=== PATIENT | female | born 1990 | race Caucasian/White ===

== ENCOUNTER 2024-06-01 21:54 | Inpatient (IN) | payer BC, SELFPAY ==
[2024-06-01] VITALS (23 sets, daily range): BP systolic 123–152; BP diastolic 66–91; PULSE 105–123; TEMP 36.9; O2SAT 97–100; BMI 26.6
--- NOTE | 2024-06-01 22:29 | LDADM ---
This patient, Rosette Sanchez, was admitted to Labor/Delivery/Recovery 105 on 06/01/24 at 21:54. Plans for labor, pain management and were discussed with patient. Patient/family oriented to hospital policies and general routines including ID bracelet, bed and alarms, visiting hours, pain management, procedures, bathroom and other care routines, personal items, smoking policy, room service/diet and guest tray routines, security routines, and visiting hours. Patient/Family are encouraged to report perceived risks to care and to ask questions if they do not understand what they are told or what they should do. See OBIX for further documentation.
[2024-06-01 22:37] LABS: Basophils Percent Auto 0.2 % (0.2-1.2); Eosinophils Absolute Auto 0.1 K/mm3 (0-0.3); Eosinophils Percent Auto 0.4 % (0-4.4); Hematocrit 36.6 % (37.0-47.0); Hemoglobin 12.2 g/dL (12.0-15.0); Immature Granulocyte Absolute 0.07 K/mm3 (0.00-0.031); Immature Granulocyte Percent A 0.6 % (0-0.5); Lymphocytes Absolute Auto 2.11 K/mm3 (0.9-3.2); Lymphocytes Percent Auto 17.3 % (18.3-44.2); Mean Corpuscular HGB Conc 33.3 g/dl (32-36); Mean Corpuscular Hemoglobin 28.9 pg (26-34); Mean Corpuscular Volume 86.7 fl (80-100); Mean Platelet Volume 12.4 fl (7.4-10.4); Monocytes Absolute Auto 0.6 K/mm3 (0.1-0.6); Monocytes Percent Auto 4.8 % (2.6-8.5); Neutrophils Absolute Auto 9.3 K/mm3 (1.3-6.7); Neutrophils Percent Auto 76.7 % (45.5-73.1); Platelet Count Result 145 k/mm3 (150-375); Red Blood Count 4.22 M/mm3 (4.2-5.4); Red Cell Distribution Width 15.8 % (11.5-14.5); White Blood Count 12.2 K/mm3 (4.5-10.0)
[2024-06-01] MEDS: LACTATED RINGERS 1,000 ML 125 ML IV CONT ×2 (22:41→23:29)
[2024-06-01 23:14] LABS: Syphilis IgG/IgM Antibody Negative (Negative)
[2024-06-01 23:27] LABS: HIV 1/2 Ab P24 Ag Result Negative (Negative)
--- NOTE | 2024-06-01 23:39 | WPDANESEPPF ---
Anes - Initial Pre Proc Eval Procedure: labor epidural Date/Time: 06/01/24 23:39 Surgeon: Booker Calle MD Pre Op Diagnosis: labor pain Pre Op Diagnosis: Leaking Patient Data Age: 34 Gender: F Height: 1.73 m Weight: 79.54 kg Last Vital Signs Temp 36.9 C 06/01/24 23:27 Pulse 106 H 06/01/24 23:37 BP 137/76 06/01/24 23:37 Pulse Ox 97 06/01/24 23:37 O2 Del Method Room Air 06/01/24 22:29 Allergies Allergy/AdvReac Type Severity Reaction Status Date / Time No Known Allergies Allergy Verified 05/10/24 09:57 Home Medications ?Medication ?Instructions ?Recorded ?Confirmed ?Type vit no.95-ferrous 1 tablet PO DAILY 05/10/24 05/10/24 History fumarate 28 mg-folic acid 800 mcg tablet () Laboratory Tests 06/01/24 22:22 WBC 12.2 H K/mm3 (4.5-10.0) RBC 4.22 M/mm3 (4.2-5.4) Hgb 12.2 g/dL (12.0-15.0) Hct 36.6 L % (37.0-47.0) MCV 86.7 fl (80-100) MCH 28.9 pg (26-34) MCHC 33.3 g/dl (32-36) RDW 15.8 H % (11.5-14.5) Plt Count 145 L k/mm3 (150-375) MPV 12.4 H fl (7.4-10.4) Immature Gran % (Auto) 0.6 H % (0-0.5) Neut % (Auto) 76.7 H % (45.5-73.1) Lymph % (Auto) 17.3 L % (18.3-44.2) [place] % (Auto) 4.8 % (2.6-8.5) Eos % (Auto) 0.4 % (0-4.4) Baso % (Auto) 0.2 % (0.2-1.2) Lymph # (Auto) 2.11 K/mm3 (0.9-3.2) [place] # (Auto) 0.6 K/mm3 (0.1-0.6) Eos # (Auto) 0.1 K/mm3 (0-0.3) Baso # (Auto) 0.0 K/mm3 (0.0-0.1) Abs Immat Gran (auto) 0.07 H K/mm3 (0.00-0.031) Absolute Neuts (auto) 9.3 H K/mm3 (1.3-6.7) Absolute Nucleated RBC 0.000 K/mm3 (0.0-0.012) Nucleated RBC % 0.0 % (0.0-0.2) Syphilis IgG/IgM Ab Negative (Negative) HIV 1&2 Ab/P24 Ag 4thGn Negative (Negative) Blood Type A Positive Antibody Screen Negative Patient hx anesthesia problems: none Family hx anesthesia problems: none Results Review: All pre-operative results and documents have been reviewed as part of the pre-operative evaluation. [facility] Family History Family History Other Unknown family medical history Social History Social History Smoking status: Never smoker Substance use: never Do You Feel Safe in your Home?: Yes Lack of Transportation: No Lack of Food: Never True Current Housing: I Have Housing Concerned About Future Housing: No Difficulty Paying Gas/Electric Bills: No Difficulty Paying for Meds: No Currently Unemployed: No Education: Bachelor's Degree Difficulty w/ Childcare or Family Care: No Spiritual care concerns: No Anes - Eval Final PreProcedure Day of Procedure 06/01/24 23:39 Patient weight: normal Heart: regular rate and rhythm Lungs: clear to auscultation Airway: Mallampati scale class 1 Neurological: alert and oriented ASA classification: II Anesthetic plan: proceed Anesthesia type and monitoring: regional epidural and standard monitoring Results Review: All pre-operative results and documents have been reviewed as part of the pre-operative evaluation. Informed Consent: The patient's anesthetic plan and its attendant risks and benefits were discussed with the patient/family/POA. Questions were solicited and answers provided to the satisfaction of the patient/family/POA.
[2024-06-02] VITALS (118 sets, daily range): BP systolic 110–145; BP diastolic 55–87; PULSE 88–158; RESP 16–18; TEMP 36.4–37.4; O2SAT 91–100
[2024-06-02] MEDS: LACTATED RINGERS 1,000 ML 125 ML IV CONT (02:04)
[2024-06-02] MEDS: diphenhydrAMINE HCl INJ 50 MG/ML VIAL 25 MG IV PUSH (02:21)
--- NOTE | 2024-06-02 06:38 | PM.IMHP ---
H&P: HPI History of Present Illness Date/Time: 06/02/24 06:38 Chief Complaint: Labor at term Narrative: This is a 34-year-old 1 para 0 whose last menstrual period was 08/29/2023, EDC is 06/01 24, confirmed by 10 week ultrasound who presents at term in active labor. 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 She passed her diabetic screen is negative for group B strep Review of Systems Review of Systems: All systems reviewed & are unremarkable except as noted in HPI and below PMFSH Family History Family History Other Unknown family medical history Social History Social History Smoking status: Never smoker Substance use: never Do You Feel Safe in your Home?: Yes Lack of Transportation: No Lack of Food: Never True Current Housing: I Have Housing Concerned About Future Housing: No Difficulty Paying Gas/Electric Bills: No Difficulty Paying for Meds: No Currently Unemployed: No Education: Bachelor's Degree Difficulty w/ Childcare or Family Care: No Spiritual care concerns: No Meds Home Medications and Allergies Home Medications ?Medication ?Instructions ?Recorded ?Confirmed ?Type vit no.95-ferrous 1 tablet PO DAILY 05/10/24 05/10/24 History fumarate 28 mg-folic acid 800 mcg tablet () valacyclovir 1 gram tablet mg 06/01/24 History Allergies Allergy/AdvReac Type Severity Reaction Status Date / Time No Known Allergies Allergy Verified 06/01/24 23:58 Vital Signs Vital Signs - 24 hr 06/01/24 22:29 06/01/24 23:04 06/01/24 23:12 Temperature Pulse Rate 119 H 114 H Respiratory Rate Blood Pressure 140/88 128/91 H Pulse Oximetry 100 Oxygen Delivery Room Air 06/01/24 23:13 06/01/24 23:15 06/01/24 23:17 Temperature Pulse Rate 123 H 114 H Respiratory Rate Blood Pressure 143/80 H 144/82 H Pulse Oximetry 100 Oxygen Delivery 06/01/24 23:18 06/01/24 23:20 06/01/24 23:22 Temperature Pulse Rate 118 H 113 H 110 H Respiratory Rate Blood Pressure 152/66 H 149/74 H 134/83 Pulse Oximetry 98 Oxygen Delivery 06/01/24 23:25 06/01/24 23:27 06/01/24 23:28 Temperature 98.4 F Pulse Rate 105 H 110 H Respiratory Rate Blood Pressure 147/79 H 137/82 Pulse Oximetry 98 Oxygen Delivery 06/01/24 23:30 06/01/24 23:32 06/01/24 23:35 Temperature Pulse Rate 113 H 114 H 112 H Respiratory Rate Blood Pressure 137/71 131/72 130/71 Pulse Oximetry 97 Oxygen Delivery 06/01/24 23:37 06/01/24 23:40 06/01/24 23:42 Temperature Pulse Rate 106 H 108 H 112 H Respiratory Rate Blood Pressure 137/76 123/77 132/72 Pulse Oximetry 97 98 Oxygen Delivery 06/01/24 23:45 06/01/24 23:47 06/01/24 23:50 Temperature Pulse Rate 109 H 114 H 107 H Respiratory Rate Blood Pressure 133/76 125/76 130/74 Pulse Oximetry 98 Oxygen Delivery 06/01/24 23:52 06/01/24 23:55 06/01/24 23:57 Temperature Pulse Rate 107 H 110 H 109 H Respiratory Rate Blood Pressure 135/71 133/73 129/76 Pulse Oximetry 97 97 Oxygen Delivery 06/02/24 00:00 06/02/24 00:02 06/02/24 00:05 Temperature Pulse Rate 112 H 115 H 118 H Respiratory Rate Blood Pressure 129/78 127/77 133/72 Pulse Oximetry 97 Oxygen Delivery 06/02/24 00:07 06/02/24 00:12 06/02/24 00:15 Temperature Pulse Rate 112 H 111 H Respiratory Rate Blood Pressure 126/75 123/66 Pulse Oximetry 99 97 Oxygen Delivery 06/02/24 00:17 06/02/24 00:22 06/02/24 00:27 Temperature Pulse Rate Respiratory Rate Blood Pressure Pulse Oximetry 98 93 94 Oxygen Delivery 06/02/24 00:30 06/02/24 00:32 06/02/24 00:37 Temperature Pulse Rate 113 H Respiratory Rate Blood Pressure 115/66 Pulse Oximetry 94 93 Oxygen Delivery 06/02/24 00:42 06/02/24 00:45 06/02/24 00:47 Temperature Pulse Rate 112 H Respiratory Rate Blood Pressure 119/62 Pulse Oximetry 94 93 Oxygen Delivery 06/02/24 00:52 03/07/25 00:57 06/02/24 01:00 Temperature Pulse Rate 112 H Respiratory Rate Blood Pressure 113/75 Pulse Oximetry 94 98 Oxygen Delivery 06/02/24 01:02 06/02/24 01:07 06/02/24 01:12 Temperature 98.7 F Pulse Rate Respiratory Rate Blood Pressure Pulse Oximetry 95 95 98 Oxygen Delivery 06/02/24 01:15 06/02/24 01:17 06/02/24 01:22 Temperature Pulse Rate 116 H Respiratory Rate Blood Pressure 121/71 Pulse Oximetry 97 97 Oxygen Delivery 06/02/24 01:27 06/02/24 01:30 06/02/24 01:32 Temperature Pulse Rate 106 H Respiratory Rate Blood Pressure 137/69 Pulse Oximetry 95 95 Oxygen Delivery 06/02/24 01:37 06/02/24 01:42 06/02/24 01:45 Temperature Pulse Rate 117 H Respiratory Rate Blood Pressure 115/71 Pulse Oximetry 96 95 Oxygen Delivery 06/02/24 01:47 06/02/24 01:52 06/02/24 01:57 Temperature Pulse Rate Respiratory Rate Blood Pressure Pulse Oximetry 95 96 96 Oxygen Delivery 06/02/24 02:00 06/02/24 02:02 06/02/24 02:07 Temperature Pulse Rate 117 H Respiratory Rate Blood Pressure 123/77 Pulse Oximetry 95 96 Oxygen Delivery 06/02/24 02:12 06/02/24 02:17 06/02/24 02:22 Temperature Pulse Rate Respiratory Rate Blood Pressure Pulse Oximetry 96 98 94 Oxygen Delivery 06/02/24 02:27 06/02/24 02:30 06/02/24 02:32 Temperature Pulse Rate 112 H Respiratory Rate Blood Pressure 113/63 Pulse Oximetry 95 95 Oxygen Delivery 06/02/24 02:37 06/02/24 02:42 06/02/24 02:45 Temperature Pulse Rate 113 H Respiratory Rate Blood Pressure 112/55 L Pulse Oximetry 95 94 Oxygen Delivery 06/02/24 02:47 06/02/24 02:52 06/02/24 02:57 Temperature Pulse Rate Respiratory Rate Blood Pressure Pulse Oximetry 96 96 97 Oxygen Delivery 06/02/24 03:00 06/02/24 03:02 06/02/24 03:05 Temperature 99.4 F Pulse Rate 118 H Respiratory Rate 18 Blood Pressure 110/55 L Pulse Oximetry 96 Oxygen Delivery 06/02/24 03:07 06/02/24 03:12 06/02/24 03:15 Temperature Pulse Rate 154 H Respiratory Rate Blood Pressure 128/73 Pulse Oximetry 98 94 Oxygen Delivery 06/02/24 03:17 06/02/24 03:22 06/02/24 03:27 Temperature Pulse Rate Respiratory Rate Blood Pressure Pulse Oximetry 95 95 97 Oxygen Delivery 06/02/24 03:28 06/02/24 03:30 06/02/24 03:32 Temperature 99.4 F Pulse Rate 127 H Respiratory Rate Blood Pressure 127/76 Pulse Oximetry 95 Oxygen Delivery 06/02/24 03:37 06/02/24 03:42 06/02/24 03:45 Temperature Pulse Rate 120 H Respiratory Rate Blood Pressure 130/80 Pulse Oximetry 95 96 Oxygen Delivery 06/02/24 03:47 06/02/24 03:52 06/02/24 03:57 Temperature Pulse Rate Respiratory Rate Blood Pressure Pulse Oximetry 96 95 98 Oxygen Delivery 06/02/24 04:00 06/02/24 04:02 06/02/24 04:07 Temperature Pulse Rate 111 H Respiratory Rate Blood Pressure 129/65 Pulse Oximetry 97 97 Oxygen Delivery 06/02/24 04:12 06/02/24 04:17 06/02/24 04:22 Temperature Pulse Rate Respiratory Rate Blood Pressure Pulse Oximetry 97 97 98 Oxygen Delivery 06/02/24 04:27 06/02/24 04:32 06/02/24 04:37 Temperature 98.7 F Pulse Rate Respiratory Rate Blood Pressure Pulse Oximetry 95 96 95 Oxygen Delivery 06/02/24 04:42 06/02/24 04:45 06/02/24 04:47 Temperature Pulse Rate 113 H Respiratory Rate Blood Pressure 123/67 Pulse Oximetry 96 96 Oxygen Delivery 06/02/24 04:52 06/02/24 04:57 06/02/24 05:00 Temperature Pulse Rate 119 H Respiratory Rate Blood Pressure 117/66 Pulse Oximetry 98 98 Oxygen Delivery 06/02/24 05:02 06/02/24 05:07 06/02/24 05:12 Temperature Pulse Rate Respiratory Rate Blood Pressure Pulse Oximetry 96 96 97 Oxygen Delivery 06/02/24 05:17 06/02/24 05:22 06/02/24 05:27 Temperature Pulse Rate Respiratory Rate Blood Pressure Pulse Oximetry 93 96 96 Oxygen Delivery 06/02/24 05:30 06/02/24 05:32 06/02/24 05:37 Temperature Pulse Rate 119 H Respiratory Rate Blood Pressure 129/78 Pulse Oximetry 96 97 Oxygen Delivery 06/02/24 05:42 06/02/24 05:45 06/02/24 05:47 Temperature Pulse Rate 119 H Respiratory Rate Blood Pressure 125/75 Pulse Oximetry 98 98 Oxygen Delivery 06/02/24 05:52 06/02/24 05:57 06/02/24 06:02 Temperature Pulse Rate Respiratory Rate Blood Pressure Pulse Oximetry 98 97 98 Oxygen Delivery 06/02/24 06:07 06/02/24 06:08 06/02/24 06:10 Temperature Pulse Rate Respiratory Rate Blood Pressure Pulse Oximetry 99 100 99 Oxygen Delivery 06/02/24 06:12 06/02/24 06:15 06/02/24 06:20 Temperature 98.9 F Pulse Rate Respiratory Rate Blood Pressure Pulse Oximetry 99 99 Oxygen Delivery 06/02/24 06:22 06/02/24 06:22 06/02/24 06:25 Temperature Pulse Rate Respiratory Rate Blood Pressure Pulse Oximetry 99 98 91 Oxygen Delivery 06/02/24 06:27 Temperature Pulse Rate Respiratory Rate Blood Pressure Pulse Oximetry 100 Oxygen Delivery Exam Const: General: cooperative, healthy appearing and comfortable Nutritional Appearance: average body habitus Orientation/consciousness: oriented to person, oriented to place and oriented to time HENMT: Head: normal to inspection Resp: Effort & Inspection: normal respiratory effort Cardio: Rate: regular rate Rhythm: regular rhythm Heart sounds: S1 normal heart sound present and S2 normal heart sound present GI: Inspection: normal to inspection (Gravid soft uterus) : External Female Exam: normal external appearance Speculum Exam - Vagina: normal appearance of the vagina Speculum Exam - Cervix: normal appearance of the cervix (Service complete patient pushing) H&P: Results Labs Labs: Short CBC 06/01/24 Range/Units 22:22 WBC 12.2 H (4.5-10.0) K/mm3 Hgb 12.2 (12.0-15.0) g/dL Hct 36.6 L (37.0-47.0) % Plt Count 145 L (150-375) k/mm3 Assessment and Plan Assessment and plan (1) Term : Code(s): Z34.90 - Encounter for supervision of normal , unspecified, unspecified trimester Status: Acute Plan Spontaneous vaginal delivery expected
[2024-06-02] MEDS: OXYTOCIN 30 UNITS/NS 500 ML 30 UNITS/500 ML BAG 999 UNITS IV CONT (07:24)
--- NOTE | 2024-06-02 07:26 | PM.OBPRVD ---
OB - Vaginal Delivery Note Procedure Delivery date: 06/02/24 Induction method: None Delivery monitor: External FHT and Internal Uterine Route of delivery: Episiotomy description: None Laceration Description: None Specimen: No Quantitative Blood Loss (ml): 62 Anesthesia type: Epidural Disposition: Floor Complications: No immediate complications Narrative: Patient was admitted in active labor at 40 weeks gestation. She had epidural anesthesia placed and internal monitoring placed. She progressed an unremarkable 1st stage of labor to completely dilated she pushed delivered head spontaneously in the STAN position. Anterior posterior shoulder delivered spontaneously after relieving the nuchal cord around the occiput. Patient passed off the table given Apgars of 7 [id number] and 9 [id number]. Cord blood was drawn. Placenta intact spontaneously. 20units Pitocin placed IV to help firm the uterus. No tears or lacerations were noted. QBL was 62cc. Mom and baby are doing fine at the time of dictation Baby Date of : 06/02/24 Time of : 07:18 Gestational Age by Date: 40 Infant gender: Male Weight (pounds): 7 Weight (ounces): 10 presentation: vertex position: Right Occiput Anterior Placenta delivery description: Spontaneous Cord Vessel Description: 3 Vessels, Nuchal Cord, Loose and Reduced score one minute: 7 score five minutes: 9
--- NOTE | 2024-06-02 07:29 | PM.DS ---
DS: Admitting Diagnosis Discharge Date 06/04/2024 Admitting Diagnosis Term DS: Discharge Diagnosis Discharge Diagnosis (1) Term : Code(s): Z34.90 - Encounter for supervision of normal , unspecified, unspecified trimester Status: Acute DS: Summary Hospital Course Reason for hospitalization: Patient was admitted in active labor on the late p.m. of 06/01/2024. She underwent spontaneous vaginal delivery on 06/02/2024 at 7:18 a.m. Hospital Course: Patient's hospital course unremarkable. She remained afebrile. She was up, voiding without difficulty, eating regular diet, ambulating, and generally without complaints. Time Spent with Patient Time attestation: Total time spent providing and/or coordinating discharge services: Exam Const: General: cooperative, healthy appearing and comfortable Nutritional Appearance: average body habitus Orientation/consciousness: oriented to person, oriented to place and oriented to time HENMT: Head: normal to inspection Resp: Effort & Inspection: normal respiratory effort Cardio: Rate: regular rate Rhythm: regular rhythm Heart sounds: S1 normal heart sound present and S2 normal heart sound present GI: Inspection: normal to inspection (Fundus firm below the umbilicus) DS: Data Data Completed and Pending Labs on day of discharge: Labs from last 24 hours 06/01/24 22:22 WBC 12.2 H RBC 4.22 Hgb 12.2 Hct 36.6 L MCV 86.7 MCH 28.9 MCHC 33.3 RDW 15.8 H Plt Count 145 L MPV 12.4 H Immature Gran % (Auto) 0.6 H Neut % (Auto) 76.7 H Lymph % (Auto) 17.3 L [place] % (Auto) 4.8 Eos % (Auto) 0.4 Baso % (Auto) 0.2 Lymph # (Auto) 2.11 [place] # (Auto) 0.6 Eos # (Auto) 0.1 Baso # (Auto) 0.0 Abs Immat Gran (auto) 0.07 H Absolute Neuts (auto) 9.3 H Absolute Nucleated RBC 0.000 Nucleated RBC % 0.0 Syphilis IgG/IgM Ab Negative HIV 1&2 Ab/P24 Ag 4thGn Negative Blood Type A Positive Antibody Screen Negative Discharge Plan Discharge Attending physician on discharge: Booker Francis Discharging Clinician: Booker Francis Activity: may shower, no straining and pelvic rest Diet: heart healthy Wound Care Instructions: follow printed instructions Patient Language: Greek Follow-up/Referrals: Booker Francis MD [Physician] - Discharge Medications: Continued PNV cmb#95-ferrous fumarate-FA [] 28 mg iron- 800 mcg tablet 1 tablet PO DAILY valacyclovir 1 gram tablet Date of admission: 06/01/24 21:54 Primary Care Provider: PHYSICIAN,SEPARATOR OPERATOR [employer] Admitting Provider: Booker Francis Attending physician on admission: Booker Francis Condition: Stable
[2024-06-02] MEDS: OXYTOCIN 30 UNITS/NS 500 ML 30 UNITS/500 ML BAG 125 UNITS IV CONT (07:58)
[2024-06-02] MEDS: IBUPROFEN 600 MG TABLET (12:19)
[2024-06-02] MEDS: ACETAMINOPHEN 325 MG TABLET 650 MG PO (15:20)
--- NOTE | 2024-06-02 17:01 | PC.NURSE ---
0835 RN called to labor room to help mother latch baby. Mother had baby is cross cradle position and would open mouth, cry and not latch. Baby would not suck on gloved finger either at this time. Mother is able to hand express large drops of colostrum into baby's mouth, mother did this around 6-7 times. Mother put baby skin to skin and will continue to watch for feeding cues. Reported to Nursery RN. 1130 This RN assisted mother with putting baby in cross cradle position, baby was not able to latch, he would cry at the breast and then fall asleep, RN helped mother hand express large drops of colostrum into baby's mouth 9 times. Per mother she does have her own breast pump that her will go home and get if she needs to use it sooner than later, for now she will hand express. Admission packet given for and reviewed, discussed feeding cues, how often to feed baby and supply/demand. Reported to Primary RN. 1220 This RN in room and mother was able to hand express drops of colostrum into baby's mouth 3 times, she had baby in football position but baby was too sleepy to latch at this time. Mother is keeping baby skin to skin. Reported to Primary RN. 1435 RN at bedside. RN changed large meconium diaper, baby awake. Mother attempted to latch infant, he is still not wanting to open up and latch. RN attempted to see if baby would suck on her gloved finger and he still would not. Mother is able to hand express many drops of colostrum and give to baby. Mother keeping baby skin to skin. Reported to Primary RN. RN will let machine featheredger and reducer know. 1600 RN at bedside, mother works very well with infant and she has him in football position on her right breast, baby will open wide now and he will latch but will not suck, he had previously sucked on a gloved finger and was rooting. Mother is again hand expressing and giving large drops of colostrum. Reported to Primary RN. RN will check back in with machine featheredger and reducer before 6pm this evening.
[2024-06-02] MEDS: IBUPROFEN 600 MG TABLET PO (18:25)
--- NOTE | 2024-06-02 18:30 | PC.NURSE ---
Parents advised that baby's blood sugar check was 56 and within normal limits. Baby is due to try and feed soon, mother has brought her Spectra pump and would like that set up, she knows that if baby continues to not effectively feed at the breast she should pump with each feeding and may need to supplement as needed. Instructions given on cleaning, care, usage, that there should be no pain, pumping schedule for milk production, collection, and storage of human milk. Patient was assessed for correct placement, flange size (both nipples measured 19mm and she is going to try the 24 flange, if too big will use hospital pump), to pump for comfort and nipple stretching/stimulation for adequate milk production every 3 hours (8 times in 24 hours) 1-2 times at night. Parents are encouraged to record the pumping schedule on the feeding sheet.?Mother voiced understanding of the education shared along with mom/baby guide and the pump measurement, flange fit handout for additional resource information. Reported to the Primary RN.
[2024-06-03] MEDS: IBUPROFEN 600 MG TABLET PO ×3 (04:30→23:00)
[2024-06-03 05:18] LABS: Hematocrit 29.6 % (37.0-47.0); Hemoglobin 9.7 g/dL (12.0-15.0)
--- NOTE | 2024-06-03 07:02 | P.PNOB_ITS ---
OB - PN: Subj Subjective Date/time seen: 06/03/24 07:02 Patient comments: no complaints, pain well controlled and tolerating diet [place] baby status: doing well and nursing well OB - PN: Obj Data Labs 06/03/24 05:02 Labs: Laboratory Results - last 24 hr 06/03/24 05:02 Hgb 9.7 L Hct 29.6 L OB - PN A/P Assessment and Plan (1) Term : Code(s): Z34.90 - Encounter for supervision of normal , unspecified, unspecified trimester Status: Acute Plan Comments: routine care Time Spent With Patient Time: Total time spent is greater than 50% in coordination of care (as documented) at patient's floor/unit and/or counseling patient: Review of Systems 2 Review of Systems: All systems reviewed & are unremarkable except as noted in HPI and below Exam 2 Const: General: cooperative, healthy appearing, comfortable and well groomed Nutritional Appearance: average body habitus Orientation/consciousness: o riented to person and oriented to place Resp: Effort & Inspection: normal respiratory effort GI: Inspection: normal to inspection
[2024-06-03 08:00] VITALS: BP 126/76; PULSE 93; RESP 16; TEMP 36.3; O2SAT 98
--- NOTE | 2024-06-03 09:05 | PC.NURSE ---
Introductions were made, then consulted with patient to assess needs related to . Discussed with mother her?plans to feed?her and the?experience so far. Baby has only latched to the breast once with the nipple shield. He is now 24 hours old. Yesterday he received drops of colostrum and had blood sugars WNL. Mom is pumping with her Spectra pump. RN had baby for the circumcision and testing in the nursery so parents elected to give a bottle at this feeding time. Encouraged mom to call out today for latching assistance and any questions/concerns regarding pumping or feeding. Resources provided for inpatient and outpatient services with the feeding sheet, mom/baby guide and name written on the communication board. Mother voiced understanding of information and will call if there is a request for assistance. Reported to the Primary RN.
[2024-06-03] MEDS: ACETAMINOPHEN 325 MG TABLET 650 MG PO ×2 (09:53→19:10)
[2024-06-03] MEDS: MULTIVIT/MIN/PREN/FOL AC/IRON TABLET 1 TAB PO (09:54)
[2024-06-03] MEDS: DOCUSATE SODIUM 100 MG CAPSULE PO ×2 (09:54→16:25)
[2024-06-03] MEDS: POLYSACCHARIDE IRON COMPLEX 150 MG CAPSULE PO ×2 (09:55→16:25)
--- NOTE | 2024-06-03 17:00 | PC.NURSE ---
Introductions were made, then consulted with patient to assess needs related to . Mother led the conversation with her?plans to feed?her and the?experience so far. Encouraged understanding of the benefits of skin to skin (demonstrating unwrapping infant and placing upright on her chest), changing positions to encourage wakefulness, how to watch for early feeding cues, responsive feeding, feeding on demand (aiming for 8-12 times in 24 hours, about every 2-3 hours), milk production, building/maintaining a milk supply, duration of feeding, signs of adequate intake/output and how to record on the feeding sheet. Mother unsure if she wants to put baby to breast or to pump and bottle feed. Encouraged that if she is intending to put baby to breast she should practice at every feeding. Reviewed positioning and latch in the mom/baby guide. Reviewed pump use and modes, frequency, and collection, use and storage of breastmilk. Mother voiced understanding of skin to skin, stimulating with massage touch, responsive feedings, hand expressed colostrum, talking to to encourage if it has been 3 hours since the start of the last , to call if does not latch, or if there is discomfort with . We discussed formula feeding and how to incorporate that into her journey. Significant other is very involved and supportive. Resources used for education were facilitated with the [mom and baby guide], Inpatient/outpatient resources provided with Services phone number, feeding sheet, name written on the communication board, and the mom/baby guide. Parents voiced understanding of information, demonstrated learning and will call if there is a request for assistance. Reported to the Primary RN.
[2024-06-03 19:10] VITALS: BP 129/78; PULSE 80; RESP 18; TEMP 36.6
--- NOTE | 2024-06-04 03:05 | PC.NURSE ---
Daylight Savings Time For Daylight Savings Time Beginning in the Spring - Clocks are moved ahead. For [facility], the time of change occurs at 0200 hrs. Time is taken from the linux server administrator. This entry on the patient's chart recognizes the change in time reflected during documentation. Example: 2 entries for vital signs may be charted for 0200 hrs.
[2024-06-04] MEDS: ACETAMINOPHEN 325 MG TABLET 650 MG PO (05:00)
--- NOTE | 2024-06-04 07:05 | P.PNOB_ITS ---
OB - PN: Subj Subjective Date/time seen: 06/04/24 07:05 Patient comments: no complaints, pain well controlled and tolerating diet [place] baby status: doing well and nursing well OB - PN: Obj Data Labs 06/03/24 05:02 OB - PN A/P Assessment and Plan (1) Term : Code(s): Z34.90 - Encounter for supervision of normal , unspecified, unspecified trimester Status: Acute Plan home Time Spent With Patient Time: Total time spent is greater than 50% in coordination of care (as documented) at patient's floor/unit and/or counseling patient: Review of Systems 2 Review of Systems: All systems reviewed & are unremarkable except as noted in HPI and below Exam 2 Const: General: cooperative, healthy appearing, comfortable and well groomed Nutritional Appearance: average body habitus Orientation/consciousness: o riented to person, oriented to place and oriented to time HENMT: Head: normal to inspection Resp: Effort & Inspection: normal respiratory effort GI: Inspection: normal to inspection
[2024-06-04] MEDS: MULTIVIT/MIN/PREN/FOL AC/IRON TABLET 1 TAB PO (07:45)
[2024-06-04] MEDS: DOCUSATE SODIUM 100 MG CAPSULE PO (07:45)
[2024-06-04] MEDS: POLYSACCHARIDE IRON COMPLEX 150 MG CAPSULE PO (07:45)
[2024-06-04 07:50] VITALS: BP 112/73; PULSE 82; RESP 16; TEMP 36.4; O2SAT 97
[2024-06-05 08:30] VITALS: BP 113/68; PULSE 87; RESP 18; TEMP 36.6; O2SAT 98
== END 2024-06-04 09:50 | disposition home or self-care (01) | DRG 807 ==
LOC: ANHLDR 06-02 07:31 → ANHOB2 06-02 11:17
PROVIDERS: Admitting Provider Obstetrics & Gynecology; Visit Provider Obstetrics & Gynecology
DX: O69.81X0 Labor and delivery complicated by cord around neck, without compression, not applicable or unspecified (principal); Z37.0 Single live birth; Z3A.40 40 weeks gestation of pregnancy
CPT/HCPCS: 36415; 85014; 85018; 85025; 86593; 86703; 86850; 86900; 86901; A9270; G0432; J1200; J2590; J2795; J7030; J7120

== ENCOUNTER 2024-12-16 14:46 | Emergency (ER) | payer OTHER, SELFPAY ==
--- OUTSIDE RECORDS SUMMARY | 2024-12-16 14:50 | XMS_ITS ---
Author Organization Unknown ENCOUNTERS Encounter Performer Location Date Diagnosis Diagnosis Status Inpatient [address] [id number] [place] *Note: Encounters from your own facility or health system may be excluded. Allergies, Adverse Reactions, Alerts Allergen Type Severity Identification Date Medications Name Date Quantity Days Supplied GPI Number
--- NOTE | 2024-12-16 14:55 | ED_ITS ---
HPI - URI/Sore Throat General Chief Complaint: Upper Respiratory Infection Stated Complaint: Flu Like Time Seen by Provider: 12/16/24 14:55 Source: patient Mode of arrival: ambulatory Limitations: no limitations History of Present Illness HPI Narrative: Radha is a 34-year-old female patient presenting to the clinic today with complaints of flu-like symptoms. She reports she reports body aches, left breast pain, fatigue, and feeling feverish since yesterday. States she is currently . Actively pumps and has not been able pump since 8:00 a.m. this morning. Reporting pain to the left lateral upper breast and axilla area. Tender to this area to palpation. Temperature is 38.2? C in the clinic today and heart rates 124. She denies any URI symptoms. Has not taken any medications for her symptoms. Related Data Home Medications ?Medication ?Instructions ?Recorded ?Confirmed ?Last Taken ?Type vit no.95-ferrous 1 tablet PO DAILY 05/10/24 05/10/24 05/10/24 History fumarate 28 mg-folic acid 800 mcg tablet () valacyclovir 1 gram tablet mg 06/01/24 06/01/24 Histo ry Allergies Allergy/AdvReac Type Severity Reaction Status Date / Time No Known Allergies Allergy Verified 12/16/24 14:48 Review of Systems Review of Systems: Pertinent positives per HPI. Patient denies any rash, headache, visual changes, dizziness, cough, shortness of breath, chest pain, palpitations, nausea, vomiting, diarrhea, constipation, abdominal pain, or any urinary issues. [facility] Family History Family History Other Unknown family medical history Social History Social History Smoking status: Never smoker Substance use: never Do You Feel Safe in your Home?: Yes Lack of Transportation: No Lack of Food: Never True Current Housing: I Have Housing Concerned About Future Housing: No Difficulty Paying Gas/Electric Bills: No Difficulty Paying for Meds: No Currently Unemployed: No Education: Bachelor's Degree Difficulty w/ Childcare or Family Care: No Spiritual care concerns: No Comments At the time of my signature, I reviewed and agree with the nursing past medical, surgical, social, and family history. There is no relevant family history pertinent to the patient complaint. Exam Narrative: General: Well-developed, well nourished, in no apparent distress Head: Normocephalic, atraumatic Eyes: Pupils equally round and reactive to light bilaterally, EOM intact, sclera and conjunctive clear, no discharge, lids normal Ears: TMs intact and clear, ear canals clear, no drainage, grossly hearing normal. Nose: Nares patent, no discharge, no inflammation, no sinus tenderness. Mouth: Oral pharynx without lesions or masses, good dentition, MMM. Neck: Supple, trachea midline, no enlargement of anterior or posterior cervical nodes, no thyroid masses or goiter palpable. Breast: Symmetric, no dimpling, right breast-no masses or lesions bilaterally, non-tender, no nipple discharge, left breast tenderness to the lateral left upper quadrant into the axilla, no palpable mass or redness, no purulent nipple discharge Cardio: Regular rate and rhythm, s1 and s2 normal, no murmur appreciated. Resp: Clear to auscultation bilaterally, no rhonchi, rales, wheezing or rubs Course Course Emergency Course: Portions of this record may have been created with voice recognition software. Level of Care: Express Care Visit Vital Signs Vital signs: Vital signs reviewed MDM - URI/Sore Throat MDM Narrative Medical decision making narrative: At the time of visit patient is resting comfortably on the exam table. Patient appears to be nontoxic. Complaints of flu-like symptoms. She reports she reports body aches, left breast pain, fatigue, and feeling feverish since yesterday. States she is currently . Actively pumps and has not been able pump since 8:00 a.m. this morning. Reporting pain to the left lateral upper breast and axilla area. Tender to this area to palpation. Temperature is 38.2? C in the clinic today and heart rates 124. She denies any URI symptoms. Has not taken any medications for her symptoms patient has normal exam other than left breast tenderness to the lateral left upper quadrant into the axilla, no palpable mass or redness, no purulent nipple discharge. COVID and influenza testing was ordered Labs: COVID and influenza testing were negative in the clinic today. Plan: I suspect patient may have early mastitis. Having breast tenderness as well as a temperature and she is tachycardic in the clinic today. Will send in prescription for some cephalexin. Supportive measures were discussed with the patient and they voiced understanding discharge instructions and agrees to treatment plan. Return precautions reviewed Differential Diagnosis Differential diagnosis: Likely upper respiratory infection, otitis media, sinusitis, viral infection, bronchitis, influenza, pharyngitis and other (COVID) Discharge Plan Discharge Clinical Impression: Acute mastitis of left breast Patient Disposition: Home Condition: Stable Instructions: Antibiotic Form, Mastitis (ED) Additional Instructions: COVID and influenza testing was negative in the clinic today. Take cephalexin as prescribed May apply warm compresses to the affected area to help alleviate pain and swelling Continue to breast feed/pump Increase fluids and stay well hydrated May take Tylenol/Motrin as needed for pain or fever as per bottle directions Go to the emergency room if you develop confusion, worsening of pain, increase in swelling, increase in redness, of fever not controlled by Tylenol or Motrin, or any other concerning symptoms Patient Language: Indonesian Prescriptions: New cephalexin 500 mg capsule 500 mg PO Q6H 7 Days Qty: 28 0RF No Action PNV no.95-ferrous fumarate-FA [] 28 mg iron- 800 mcg tablet 1 tablet PO DAILY valacyclovir 1 gram tablet Follow-up/Referrals: PHYSICIAN,[facility] [Primary Care Provider, Internal Medicine] Time of Disposition: 15:16 Quality NIHSS Nursing Documentation ED NIHSS nursing documentation: reviewed/agree
[2024-12-16 15:00] VITALS: BP 112/88; PULSE 124; RESP 18; TEMP 38.2; O2SAT 99
[2024-12-16 15:25] LABS: EDCOVIDSCREEN Negative (Negative); EDINFLUASCREEN Negative (Negative); EDINFLUBSCREEN Negative (Negative)
== END 2024-12-16 15:22 | disposition home or self-care (01) ==
PROVIDERS: Emergency Provider Nurse Practitioner Family
DX: N61.0 Mastitis without abscess (principal); Z20.822 Contact with and (suspected) exposure to COVID-19
CPT/HCPCS: 87426; 87804; 99213; G0463